=== PATIENT | female | born 1985 | race Caucasian/White ===

== ENCOUNTER 2023-12-20 10:51 | Emergency (ER) | payer OTHER, SELFPAY ==
--- NOTE | ~2023-12-20 | CT_ITS ---
EXAMINATION: CT brain wo con DATE: 12/20/2023 13:30 INDICATION: Numbness and tingling to the right lower extremity and right facial numbness TECHNIQUE: Computed tomography (CT) of the head was performed without intravenous contrast. Sagittal and coronal reconstructions were performed. The mA was adjusted according to patient size. Iterative reconstruction technique was employed. The dose-length product was 605.33 mGy-cm. COMPARISON: None FINDINGS: No acute intracranial hemorrhage, acute infarction or abnormal extra axial fluid collection. Ventricl es are normal and symmetric. No mass/mass effect. The orbits, paranasal sinuses and mastoid air cells are normal. IMPRESSION: 1. Normal head CT. Reviewed, dictated and finalized at location A. BLOCKER IMPRESSION: 1. Normal head CT.
[2023-12-20 11:38] VITALS: BP 145/99; PULSE 96; RESP 18; TEMP 36.4; O2SAT 100
[2023-12-20 12:30] VITALS: BP 131/89; PULSE 100; RESP 18; O2SAT 100
--- NOTE | 2023-12-20 12:43 | ECG_ITS ---
Measurements Intervals [place] Rate: 69 P: 55 [place]: 152 QRS: -4 QRSD: 82 T: 33 QT: 383 QTc: 411 Interpretive Statements SINUS RHYTHM LOW-VOLTAGE QRS IN PRECORDIAL LEADS BORDERLINE ECG NO PREVIOUS ECG AVAILABLE FOR COMPARISON Electronically Signed On 12-20-2023 18:32:06 [employer] by Philippe Andrea M.D.
[2023-12-20 13:00] LABS: Glucose Point of Care 87 mg/dl (65-105)
--- NOTE | 2023-12-20 13:05 | PC.NURSE ---
BS 86
--- NOTE | 2023-12-20 13:12 | ED.GENADULT ---
HPI - General Adult General Chief complaint: Unspecified <Sarah Martinez March, [employer] PROJECT LEADER - Last Filed: 12/20/23 19:34> Stated complaint: Right side of body is numb <Sarah Martinez March, SCI[employer] PROJECT LEADER - Last Filed: 12/20/23 19:34> Time Seen by Provider: 12/20/23 13:15 <Sarah Martinez March, SCI[employer] PROJECT LEADER - Last Filed: 12/20/23 19:34> Focused HPI: Jacinda Rodney is a 38 y/o female who presents with reports of progressively worsening numbness. She states that she had benign right ovarian tumor removed about 6 months ago - after surgery she noticed numbness to her right foot - she mentioned this to her PCP and they thought maybe related to nerve damage post op- however she states that since then the numbness has moved to pins and needles to her foot / cold feeling from her right foot moved up her her whole right leg. Three weeks ago she has started to experience numbness/pins and needles to her right arm / and today she noticed that her right cheek feels different from her left with decreased sensation. GENERAL: Well-appearing, well-nourished, and in no acute distress. HEAD: Normocephalic, atraumatic. CHEST: Clear to auscultation. ?No respiratory distress. HEART: Regular rate and rhythm.? NEURO: ?Alert and oriented x3. Patient screened in triage and initial orders placed.? ?Additional care and disposition to be based upon?diagnostic testing and treatment. <Rivas Bowles MD - Last Filed: 12/20/23 16:06> History of Present Illness HPI narrative: Focused HPI: Jacinda Rodney is a 38 y/o female who presents with reports of progressively worsening numbness. She states that she had benign right ovarian tumor removed about 6 months ago - after surgery she noticed numbness to her right foot - she mentioned this to her PCP and they thought maybe related to nerve damage post op- however she states that since then the numbness has moved to pins and needles to her foot / cold feeling from her right foot moved up her her whole right leg. Three weeks ago she has started to experience numbness/pins and needles to her right arm / and today she noticed that her right cheek feels different from her left with decreased sensation. GENERAL: Well-appearing, well-nourished, and in no acute distress. HEAD: Normocephalic, atraumatic. CHEST: Clear to auscultation. ?No respiratory distress. HEART: Regular rate and rhythm.? NEURO: ?Alert and oriented x3. Patient screened in triage and initial orders placed.? ?Additional care and disposition to be based upon?diagnostic testing and treatment. <Sarah Ayers [employer] PROJECT LEADER - Last Filed: 12/20/23 19:34> Patient is a 38-year-old female who presents the ER with reports of numbness to the right arm and leg. Progressive over the last 2 months. No focal weakness. She feels sensation however at rest it feels as though if arm and leg her becoming cold and numb. It improves with a warm bath or heating pad. No back pain. No fevers or chills or sweats. She reports her father has history of myasthenia gravis. Contacted her PCP's office who referred her here. <Rivas Bowles MD - Last Filed: 12/20/23 16:06> Related Data Home medications: Home Medications Medication Instructions Recorded Confirmed No Home Medications 06/28/23 06/28/23 <Sarah Ayers, [employer] PRO[employer] LEADER - Last Filed: 12/20/23 19:34> Allergies/adverse reactions: Allergies Allergy/AdvReac Type Severity Reaction Status Date / Time sulfamethizole Allergy Unknown Unknown Verified 12/20/23 12:33 trimethoprim Allergy Unknown Unknown Verified 12/20/23 12:33 <Sarah Ayers, [employer] PROJECT LEADER - Last Filed: 12/20/23 19:34> Review of Systems Review of Systems: All systems reviewed & are unremarkable except as noted in HPI and below <Rivas Bowles MD - Last Filed: 12/20/23 16:06> Constitutional: Constitutional: Reports no additional constitutional complaints <Rivas Bowles MD - Last Filed: 12/20/23 16:06> ENT: Reports system reviewed and no additional complaints, except as documented
[2023-12-20 13:28] LABS: Basophils Percent Auto 0.3 % (0.2-1.2); Eosinophils Absolute Auto 0.1 K/mm3 (0-0.3); Eosinophils Percent Auto 0.8 % (0-4.4); Hematocrit 39.7 % (37.0-47.0); Hemoglobin 12.8 g/dL (12.0-15.0); Immature Granulocyte Absolute 0.02 K/mm3 (0.00-0.031); Immature Granulocyte Percent A 0.3 % (0-0.5); Lymphocytes Absolute Auto 1.88 K/mm3 (0.9-3.2); Lymphocytes Percent Auto 28.5 % (18.3-44.2); Mean Corpuscular HGB Conc 32.2 g/dl (32-36); Mean Corpuscular Hemoglobin 29.2 pg (26-34); Mean Corpuscular Volume 90.4 fl (80-100); Mean Platelet Volume 9.9 fl (7.4-10.4); Monocytes Absolute Auto 0.4 K/mm3 (0.1-0.6); Monocytes Percent Auto 6.5 % (2.6-8.5); Neutrophils Absolute Auto 4.2 K/mm3 (1.3-6.7); Neutrophils Percent Auto 63.6 % (45.5-73.1); Platelet Count Result 205 k/mm3 (150-375); Red Blood Count 4.39 M/mm3 (4.2-5.4); Red Cell Distribution Width 11.9 % (11.5-14.5); White Blood Count 6.6 K/mm3 (4.5-10.0)
[2023-12-20 13:29] LABS: Appearance Urine Clear (Clear); Bilirubin Urine Negative (Negative); Blood Urine Negative (Negative); Color Urine Yellow (Yellow); Glucose Urine UA Negative (Negative); Ketones Urine Negative (Negative); Leukocyte Esterase Ur Negative LEU/UL (Negative); Nitrate Urine Negative (Negative); Protein Urine Negative (Negative); Specific Grav Ur 1.014 (1.001-1.035); Urobilinogen Urine 0.2 mg/dL (<2.0)
[2023-12-20 13:30] LABS: Add Urine Microscopic? NO
[2023-12-20 13:40] LABS: Alanine Aminotransferase 33 U/L (6-35); Albumin Level 4.5 g/dL (3.5-5.1); Alkaline Phosphatase 69 U/L (38-126); Anion Gap 6 mmol/L (8-16); Aspartate Amino Transferase 30 U/L (14-36); Bilirubin,Total 0.4 mg/dL (0.2-1.3); Blood Urea Nitrogen 13 mg/dL (7-17); Calcium 9.2 mg/dL (8.4-10.2); Carbon Dioxide 29 mmol/L (22-30); Chloride 103 mmol/L (98-107); Estimated CRCL calculation 89 ml/min; Estimated Glomerular Filt Rate > 60; Glucose 99 mg/dL (65-110); Potassium 3.8 mmol/L (3.4-5.0); Sodium 138 mmol/L (137-145)
[2023-12-20 15:23] VITALS: BP 128/92; PULSE 105; RESP 21; O2SAT 100
[2023-12-20 15:31] VITALS: BP 128/85; PULSE 82; RESP 21; O2SAT 100
[2023-12-20 16:08] VITALS: BP 138/84; PULSE 94; RESP 16; O2SAT 99
== END 2023-12-20 16:09 | disposition home or self-care (01) ==
PROVIDERS: Nurse Practitioner Family; Emergency Provider Emergency Medicine; PCP Family Medicine
DX: R20.2 Paresthesia of skin (principal); R94.31 Abnormal electrocardiogram [ECG] [EKG]
CPT/HCPCS: 36415; 70450; 80053; 81003; 81025; 82948; 85025; 93005; 99284

== ENCOUNTER 2025-05-11 08:13 | Outpatient (CLI) | payer OTHER, SELFPAY ==
--- NOTE | ~2025-05-11 | US_ITS ---
US venous doppler [facility] - 05/11/2025 9:30 CDT History: 40 years old Female with bilateral lower extremity pain and swelling. Real-time sonographic images of the bilateral lower extremity venous system were obtained. Color Dop pler sonography and spectral waveform analysis were performed. No prior studies for comparison. The bilateral sapheno-femoral junctions are patent. The bilateral common femoral, superficial femor al, popliteal and posterior tibial veins are compressible and without evidence of echogenic thrombus . Impression: No evidence of deep venous thrombosis Reviewed, dictated and finalized at location A. Impression: No evidence of deep venous thrombosis
== END 2025-05-11 08:14 | disposition home or self-care (01) ==
PROVIDERS: Visit Provider Nurse Practitioner Family
DX: M79.89 Other specified soft tissue disorders (principal)
CPT/HCPCS: 93970